=== PATIENT | female | born 1960 | race Caucasian/White ===

== ENCOUNTER 2017-04-26 16:20 | Inpatient (IN) | payer MEDICAID ==
[2017-04-26] VITALS (9 sets, daily range): BP systolic 95–131; BP diastolic 57–91; PULSE 70–168; RESP 16–18; TEMP 94–98.6; O2SAT 94–97
[~2017-04-26] VITALS: Ht 154.9 cm; Wt 56.5 kg
[~2017-04-26 16:20] MED LIST: CYCL10TA PO; IBUP1TAB7 PO; METO10TA PO; PROM25SU8 PO; SULF1TAB47 PO; Z.0.NO CURRENT MEDS
[2017-04-26] MEDS ORDERED: IOHEXOL 350 MG/ML 10 ML VIAL (for RAD DIAG) IVCONTRAST ONE (16:21)
[2017-04-26] MEDS ORDERED: SODIUM CHLORIDE 0.9% FLUSH 10 ML FLUSH IV FLUSH PRN ×2 (18:45→23:15)
--- NOTE | 2017-04-26 18:46 | PD ---
HPI Chief Complaint: Cold / Flu Symptoms Time Seen by Provider: 18:24 Travel History International Travel<30 days: No Contact w/Intl Traveler<30days: No Traveled to known affect area: No History of Present Illness HPI Patient 56-year-old female presents emergency department with multiple complaints. She states that her chief complaint is that her left foot has been aching her somewhat. She states that approximately a year ago she stepped on something and she had something inside of her foot. Approximate 8 months ago she noticed it started swelling up and she cut herself open to try and get whatever it was out was unsuccessful but did relieve some pus. Very recently the patient came back home from [place] where her son is very ill in the hospital. She states she has a history of blood clots in her left lower extremity and is supposed to be on blood thinners but has no insurance so has not been on them for years. She denies any shortness of breath, denies any abdominal pain chest pain. She states that she had noticed some swelling of her left lower extremity which is chronic for her but it has gone down since she got back from out of town. States the aching is really only been going on for 2 or 3 days, she has been taking Tylenol ibuprofen at home for no significant relief, context and associated signs symptoms as above. Patient is a secondary complaint of upper respiratory symptoms including stuffy nose, bilateral ear fullness, dry cough. She denies any fevers. Denies any shortness of breath these symptoms been going on for the past few days PFSH Past Medical History Hx Anticoagulant Therapy: No Autoimmune Disease: Yes (RA) Cardiac Catheterization: Yes Cardiovascular Problems: Yes (HI, STENT) Coronary Artery Disease: Yes Diabetes: No Diminished Hearing: No Deep Vein Thrombosis: Yes Kidney Stones: Yes Immunizations Current: No Myocardial Infarction: Yes ?: Not Menopausal: Yes Tubal Ligation: Yes Past Surgical History Coronary Stent: Yes (x1) Ear Surgery: Yes Tonsillectomy: Yes Other Surgery: Yes (R ARM AND R 2ND DIGIT) Social History Alcohol Use: No Tobacco Use: Yes (1/2 PPD) Substance Use: No Allergies-Medications (Allergen,Severity, Reaction): Coded Allergies: No Known Allergies (Verified Allergy, Unknown, 04/26/17) Reported Meds & Prescriptions Reported Meds & Active Scripts Active No Active Prescriptions or Reported Medications Review of Systems Except as stated in HPI: all other systems reviewed are Neg Physical Exam Narrative GENERAL: Well-developed well-nourished, no obvious distress peer SKIN: Focused skin assessment warm/dry. Several calcified nodules particularly on the extensor surfaces of her upper extremities. She also has calcifications over multiple joints in bilateral hands peer HEAD: Atraumatic. Normocephalic. EYES: Pupils equal and round. No scleral icterus. No injection or drainage. ENT: No nasal bleeding or discharge. Mucous membranes pink and moist. NECK: Trachea midline. No JVD. CARDIOVASCULAR: Regular rate and rhythm. No murmur appreciated. RESPIRATORY: No accessory muscle use. Clear to auscultation. Breath sounds equal bilaterally. GASTROINTESTINAL: Abdomen soft, non-tender, nondistended. Hepatic and splenic margins not palpable. MUSCULOSKELETAL: There is ulnar deviation of the majority of the digits in her bilateral upper extremities at the MCP joints consistent with rheumatoid arthritis.. No clubbing. No cyanosis. There is some mild edema of the left foot, no edema of the left calf, extremity is not warm, not erythematous, nontender to palpation, I do not see any wounds. NEUROLOGICAL: Awake and alert. No obvious cranial nerve deficits. Motor grossly within normal limits. Normal speech. PSYCHIATRIC: Appropriate mood and affect; insight and judgment normal. Data Data Last Documented VS Vital Signs Date Time Temp Pulse Resp B/P (MAP) Pulse Ox O2 Delivery O2 Flow Rate FiO2 04/26/17 21:50 70 16 108/57 (74) 96 Room Air 04/26/17 19:09 94.0 Orders Orders Basic Metabolic Panel (Bmp) (04/26/17 18:35) Complete Blood Count With Diff (04/26/17 18:35) Prothrombin Time / Inr (Pt) (04/26/17 18:35) Act Partial Throm Time (Ptt) (04/26/17 18:35) Iv Access Insert/Monitor (04/26/17 18:35) Ecg Monitoring (04/26/17 18:35) Oximetry (04/26/17 18:35) Sodium Chloride 0.9% Flush (Ns Flush) (04/26/17 18:45) Us Leg Venous Doppler (04/26/17 18:35) Chest, Pa & Lat (04/26/17 ) Sodium Chlor 0.9% 1000 Ml Inj (Ns 1000 M (04/26/17 19:15) Electrocardiogram (04/26/17 ) Ct Pulmonary Angiogram (04/26/17 ) Troponin I (04/26/17 18:35) Thyroid Stimulating Hormone (04/26/17 18:35) Electrocardiogram (04/26/17 19:16) Troponin I (04/26/17 21:02) Electrocardiogram (04/26/17 ) Adenosine Inj (Adenocard Inj) (04/26/17 21:45) Iohexol 350 Inj (Omnipaque 350 Inj) (04/26/17 16:21) Blood Culture (04/26/17 23:08) Vancomycin Inj (Vancomycin Inj) (04/26/17 23:15) Piperacil-Tazo 4.5 Gm Premix (Zosyn 4.5 (04/26/17 23:15) Admit Order (Ed Use Only) (04/26/17 ) Admit To Inpatient (04/26/17 ) Vital Signs (Adult) Q4H (04/26/17 23:11) Activity Oob With Assistance (04/26/17 23:11) Dependency Program Director / Telemetry .CONTINUOUS (04/26/17 23:11) Diet Heart Healthy (04/27/17 Breakfast) Sodium Chloride 0.9% Flush (Ns Flush) (04/26/17 23:15) Sodium Chloride 0.9% Flush (Ns Flush) (04/27/17 09:00) Basic Metabolic Panel (Bmp) (04/27/17 06:00) Complete Blood Count With Diff (04/27/17 06:00) Creatine Kinase (Cpk) (04/27/17 01:00) Creatine Kinase (Cpk) (04/27/17 07:00) Troponin I (04/27/17 01:00) Troponin I (04/27/17 07:00) Electrocardiogram (04/27/17 01:00) Electrocardiogram (04/27/17 07:00) Case Management Consult (04/26/17 23:11) Naloxone Inj (Narcan Inj) (04/26/17 23:15) Inpatient Certification (04/26/17 ) Echo 2d Comp With Doppler (04/26/17 ) Labs Laboratory Tests Test 04/26/17 19:10 04/26/17 21:20 White Blood Count 10.5 TH/MM3 Red Blood Count 4.95 MIL/MM3 Hemoglobin 12.5 GM/DL Hematocrit 38.4 % Mean Corpuscular Volume 77.7 FL Mean Corpuscular Hemoglobin 25.3 PG Mean Corpuscular Hemoglobin Concent 32.5 % Red Cell Distribution Width 15.4 % Platelet Count 242 TH/MM3 Mean Platelet Volume 8.9 FL Neutrophils (%) (Auto) 70.5 % Lymphocytes (%) (Auto) 22.7 % Monocytes (%) (Auto) 3.1 % Eosinophils (%) (Auto) 2.4 % Basophils (%) (Auto) 1.3 % Neutrophils # (Auto) 7.4 TH/MM3 Lymphocytes # (Auto) 2.4 TH/MM3 Monocytes # (Auto) 0.3 TH/MM3 Eosinophils # (Auto) 0.3 TH/MM3 Basophils # (Auto) 0.1 TH/MM3 CBC Comment DIFF FINAL Differential Comment Prothrombin Time 11.0 SEC Prothromb Time International Ratio 1.1 RATIO Activated Partial Thromboplast Time 22.7 SEC Blood Urea Nitrogen 17 MG/DL Creatinine 0.52 MG/DL Random Glucose 84 MG/DL Calcium Level 8.8 MG/DL Sodium Level 140 MEQ/L Potassium Level 4.5 MEQ/L Chloride Level 109 MEQ/L Carbon Dioxide Level 22.2 MEQ/L Anion Gap 9 MEQ/L Estimat Glomerular Filtration Rate 122 ML/MIN Troponin I LESS THAN 0.02 NG/ML 0.02 NG/ML Thyroid Stimulating Hormone 3rd Gen 2.390 uIU/ML MDM Medical Decision Making Medical Screen Exam Complete: Yes Emergency Medical Condition: Yes Differential Diagnosis SVT,, Pneumonia, PE, DVT, osteomyelitis seems unlikely per Narrative Course Patient was roomed in the emergency department, initial vital signs on triage are reassuring, initial vital signs when I saw the patient were within normal limits as well. Shortly after I stepped out of the room with the patient's complaints my initial concerns were for DVT and possibly pneumonia. She had been having some upper respiratory symptoms and this swelling in her foot. Certainly do not see any wounds on her foot the foot is not hot it is not tender and I highly doubt an infectious process in her foot. I left the room with these 2 diagnoses chiefly in mind and was informed by nursing that on repeat assessment the patient now is in SVT at a rate of 170. The patient had IV started with me at the bedside and I called for 6 mg of adenosine to be given, the patient had EKG prior to and following conversion. Initial EKG did show SVT, fairly regular, 6 mg was effective to control her rate and she did not require repeat dosing while in the emergency department. Her underlying rhythm was normal sinus rhythm at about 55-65 bpm. Having this run of SVT brought in by differential diagnosis to include ACS and PE. On further review of systems the patient states that this is been happening to her on and off for some time, she states that she has a history of DVT in the left lower extremity but has not taken her Coumadin in some time because she does not have insurance. She states she has had a heart attack approximately 8 years ago but is unable to provide any history about what interventions happened to her including if a catheterization had happened or not. The patient states that when the symptoms happen she feels a tight sensation in her right arm feels very dizzy like she is going to pass out. Repeat EKG showed no signs of acute HI, initial troponin was negative. Both EKG and troponin were repeated in the emergency department and remained negative. The CT PE protocol shows the following results: Last 24 hours Impressions Lower Extremity Ultrasound 04/26/17 1835 Signed Impressions: Service Date/Time: Wednesday, April 26, 2017 19:21 - CONCLUSION: Negative study. No venous thrombosis of the left lower extremity. Derick Gomez MD Chest X-Ray 04/26/17 0000 Signed Impressions: Service Date/Time: Wednesday, April 26, 2017 20:05 - CONCLUSION: No definite acute cardiopulmonary disease. Mild, chronic appearing interstitial opacities. Derick Gomez MD CT Angiography 04/26/17 0000 Signed Impressions: Service Date/Time: Wednesday, April 26, 2017 22:10 - CONCLUSION: 1. No pulmonary embolus. 2. Patchy parenchymal consolidation of both lungs and with a nodular appearance in the mid and upper lungs. These findings are most likely infectious or inflammatory. The differential would include septic emboli. Followup noncontrast chest CT is recommended in approximately 3 months. 3. Apparent hepatosplenomegaly, only partly included on the study. 4. Coronary artery calcification. Derick Gomez MD The patient was inquired again about the possibility of IV drug abuse and she adamantly declines. Given her chronic inflammatory disease the patient certainly could be having rheumatologic nodules in her lungs. She has no heart murmur has not been febrile in the emergency department, though she has had upper respiratory symptoms including cough congestion. Given all the findings I think at this time of my differential diagnoses the only things that have been excluded are DVT and PE. Septic pulmonary emboli is still a possibility, endocarditis is now become a possibility, pneumonia remains a possibility, and coronary artery disease still remains a possibility. The patient appears well, hemodynamically stable and comfortable. I discussed differential diagnosis with her and recommended admission to the hospital and she ultimately is agreeable. The patient and arranging differential diagnoses were discussed with Dr. [place]. Diagnosis Primary Impression: Left foot pain Additional Impressions: SVT (supraventricular tachycardia) Pneumonia Pulmonary nodules Admitting Information Admitting Physician Requests: Admit Scripts No Active Prescriptions or Reported Meds Condition: Stable Saurav Atkinson MD Apr 26, 2017 18:46
[2017-04-26] MEDS ORDERED: SODIUM CHLOR 0.9% 1000 ML INJ 1,000 ML IV ONE (19:15)
--- NOTE | 2017-04-26 19:47 | RADRPT ---
EXAM DATE/TIME: 04/26/2017 19:21 [facility] COMPARISON: No previous studies available for comparison. INDICATIONS : Left leg pain and swelling. Shortness of breath. MEDICAL HISTORY : Myocardial infarction. CAD. Kindey stones. DVT. SURGICAL HISTORY : Tonsillectomy. Tubal ligation. Cardiac stent. Cardiac catheterization. ENCOUNTER: Initial ACUITY: 1 week PAIN SCORE: 8/10 LOCATION: Left leg. TECHNIQUE: Venous ultrasound of the leg was performed from the inguinal ligament to the proximal calf. Real-meaghan e, color Doppler and spectral tracing, compression and augmentation techniques were used. FINDINGS: There is normal compressibility of the deep venous system from the inguinal region to the proximal ca lf. No echogenic clot is seen in the lumen of the common femoral, femoral, popliteal, and posterior tibial veins. There is a normal response of the venous system to proximal and distal augmentation an d respiration. CONCLUSION: Negative study. No venous thrombosis of the left lower extremity. Derick Gomez MD on April 26, 2017 at 19:44 Board Certified Radiologist. This report was verified electronically.
[2017-04-26 19:53] LABS: CHLORIDE 109 MEQ/L (98-107); SODIUM (NA) 140 MEQ/L (136-145)
[2017-04-26 19:55] LABS: CALCIUM 8.8 MG/DL (8.5-10.1)
[2017-04-26 19:56] LABS: BICARBONATE 22.2 MEQ/L (21.0-32.0); BLOOD UREA NITROGEN 17 MG/DL (7-18); GLUCOSE,RANDOM 84 MG/DL (74-106)
[2017-04-26 19:59] LABS: CREATININE 0.52 MG/DL (0.50-1.00); GLOMERULAR FILTRATION RATE 122 ML/MIN (>89)
[2017-04-26 20:04] LABS: TROPONIN I LESS THAN 0.02 NG/ML (0.02-0.05)
[2017-04-26 20:06] LABS: AUTOMATED NEUTROPHIL # 7.4 TH/MM3 (1.8-7.7); BASOPHIL # 0.1 TH/MM3 (0-0.2); BASOPHIL % 1.3 % (0.0-2.0); EOSINOPHIL # 0.3 TH/MM3 (0-0.4); EOSINOPHIL % 2.4 % (0.0-4.0); HEMATOCRIT 38.4 % (35.0-46.0); HEMOGLOBIN 12.5 GM/DL (11.6-15.3); LYMPH % 22.7 % (9.0-44.0); LYMPHOCYTE # 2.4 TH/MM3 (1.0-4.8); MEAN CELL VOLUME 77.7 FL (80.0-100.0); MEAN CORPUSCULAR HEMOGLOBIN 25.3 PG (27.0-34.0); MEAN CORPUSCULAR HGB CONC 32.5 % (32.0-36.0); MEAN PLATELET VOLUME 8.9 FL (7.0-11.0); MONO % 3.1 % (0.0-8.0); MONOCYTE # 0.3 TH/MM3 (0-0.9); NEUT % 70.5 % (16.0-70.0); PLATELET COUNT 242 TH/MM3 (150-450); RED BLOOD COUNT 4.95 MIL/MM3 (4.00-5.30); RED CELL DISTRIBUTION WIDTH 15.4 % (11.6-17.2); WHITE BLOOD COUNT 10.5 TH/MM3 (4.0-11.0)
--- NOTE | 2017-04-26 20:44 | RADRPT ---
EXAM DATE/TIME: 04/26/2017 20:05 [facility] COMPARISON: No previous studies available for comparison. INDICATIONS : Productive cough. Short of breath. MEDICAL HISTORY : Myocardial infarction. CAD. Kindey stones. DVT. SURGICAL HISTORY : Umbilical hernia repair. Tonsillectomy. Tubal ligation. Cardiac stent. Cardiac catheterization. ENCOUNTER: Initial ACUITY: 1 week PAIN SCORE: 0/10 LOCATION: Bilateral chest FINDINGS: Mild diffuse interstitial opacity seen of both lungs, most likely chronic. No definite acute infiltra te. No pleural effusion or pneumothorax seen. Heart size stable, within normal limits. CONCLUSION: No definite acute cardiopulmonary disease. Mild, chronic appearing interstitial opacities. Derick Gomez MD on April 26, 2017 at 20:41 Board Certified Radiologist. This report was verified electronically.
[2017-04-26 21:19] LABS: INTERNATIONAL NORMALIZED RATIO 1.1 RATIO
[2017-04-26] MEDS ORDERED: ADENOSINE IV SOLN 3 MG/ML 2 ML VIAL IV PUSH ONE (21:45)
--- NOTE | 2017-04-26 22:39 | RADRPT ---
EXAM DATE/TIME: 04/26/2017 22:10 [facility] COMPARISON: No previous studies available for comparison. INDICATIONS : Cold Symptoms with back aches. Left leg swelling IV CONTRAST: 70 cc Omnipaque 350 (iohexol) IV RADIATION DOSE: 8.19 CTDIvol (mGy) MEDICAL HISTORY : Cardiovascular disease. Deep venous thrombosis. Renal calculi. SURGICAL HISTORY : Coronary artery stent. Tubal ligation. ENCOUNTER: Initial ACUITY: 1 day PAIN SCALE: 7/10 LOCATION: chest TECHNIQUE: Volumetric scanning of the chest was performed using a pulmonary embolism protocol MIP images were re constructed. Using automated exposure control and adjustment of the mA and/or kV according to patien t size, radiation dose was kept as low as reasonably achievable to obtain optimal diagnostic quality images. DICOM format image data is available electronically for review and comparison. Follow-up recommendations for detected pulmonary nodules are based at a minimum on nodule size and pa tient risk factors according to Fleischner Society Guidelines. FINDINGS: No pulmonary embolus. Patchy parenchymal opacities of both lungs and with a vague nodular appearance in an upper lobe predo minant distribution. More focal and slightly masslike consolidation measuring approximately 2 cm in s ize seen of the right lung base. There is moderate emphysema present. Coronary artery calcification noted. Upper abdomen only partly included on the study. Hepatosplenomegaly is suspected. CONCLUSION: 1. No pulmonary embolus. 2. Patchy parenchymal consolidation of both lungs and with a nodular appearance in the mid and upper lungs. These findings are most likely infectious or inflammatory. The differential would include sept ic emboli. Followup noncontrast chest CT is recommended in approximately 3 months. 3. Apparent hepatosplenomegaly, only partly included on the study. 4. Coronary artery calcification. Derick Gomez MD on April 26, 2017 at 22:33 Board Certified Radiologist. This report was verified electronically.
[2017-04-26] MEDS ORDERED: Vancomycin Consult Pharmacy 1 EA OTHER SCH (23:15)
[2017-04-26] MEDS ORDERED: VANCOMYCIN INJ 1,000 MG in SODIUM CHLOR 0.9% 250 ML INJ 250 ML IV ONE (23:15)
[2017-04-26] MEDS ORDERED: NALOXONE HCL 0.4 MG/ML AMP IV PUSH PRN (23:15)
[2017-04-26] MEDS ORDERED: PIPERACIL-TAZO 4.5 GM PREMIX 100 ML IV ONE (23:15)
[2017-04-27] VITALS (10 sets, daily range): BP systolic 105–143; BP diastolic 60–95; PULSE 58–81; RESP 16–20; TEMP 96.6–98.8; O2SAT 95–97
[2017-04-27 01:56] LABS: TROPONIN I 0.02 NG/ML (0.02-0.05)
[2017-04-27] MEDS ORDERED: PIPERACIL-TAZO 4.5 GM PREMIX 100 ML IV SCH (06:00)
[2017-04-27 08:18] LABS: AUTOMATED NEUTROPHIL # 3.2 TH/MM3 (1.8-7.7); BASOPHIL % 0.4 % (0.0-2.0); EOSINOPHIL # 0.1 TH/MM3 (0-0.4); EOSINOPHIL % 3.1 % (0.0-4.0); HEMATOCRIT 33.6 % (35.0-46.0); HEMOGLOBIN 10.6 GM/DL (11.6-15.3); LYMPH % 26.2 % (9.0-44.0); LYMPHOCYTE # 1.2 TH/MM3 (1.0-4.8); MEAN CELL VOLUME 78.2 FL (80.0-100.0); MEAN CORPUSCULAR HEMOGLOBIN 24.7 PG (27.0-34.0); MEAN CORPUSCULAR HGB CONC 31.6 % (32.0-36.0); MEAN PLATELET VOLUME 8.5 FL (7.0-11.0); MONO % 3.2 % (0.0-8.0); MONOCYTE # 0.1 TH/MM3 (0-0.9); NEUT % 67.1 % (16.0-70.0); PLATELET COUNT 207 TH/MM3 (150-450); RED CELL DISTRIBUTION WIDTH 15.5 % (11.6-17.2); WHITE BLOOD COUNT 4.6 TH/MM3 (4.0-11.0)
[2017-04-27 08:29] LABS: CALCIUM 8.3 MG/DL (8.5-10.1)
[2017-04-27 08:30] LABS: BICARBONATE 23.1 MEQ/L (21.0-32.0)
[2017-04-27 08:33] LABS: CREATININE 0.45 MG/DL (0.50-1.00)
[2017-04-27 08:36] LABS: TROPONIN I 0.02 NG/ML (0.02-0.05)
[2017-04-27] MEDS ORDERED: TEMAZEPAM 15 MG CAP PO PRN (10:30)
[2017-04-27] MEDS ORDERED: NICOTINE 21 MG/24 HR PATCH T-DERMAL SCH (10:30)
[2017-04-27] MEDS ORDERED: RESP: ALBUTEROL 2.5 MG/IPRATROPIUM 0.5 MG NEB (PRN) NEB (10:30)
[2017-04-27] MEDS ORDERED: ACETAMINOPHEN 325 MG TAB PO PRN (10:30)
[2017-04-27] MEDS ORDERED: ONDANSETRON HCL 4 MG/2 ML VIAL IV PUSH PRN (10:30)
--- NOTE | 2017-04-27 10:32 | HHI.HP ---
[facility] No Primary Care Physician Admission Diagnosis Pneumonia, SVT, Possible ACS, Possible Septic Pulmonary Emboli Diagnoses: (1) SVT (supraventricular tachycardia) (2) Hypochromic microcytic anemia (3) Bronchitis (4) Bronchitis due to tobacco use (5) Left foot pain Chief Complaint: Shortness of breath, left foot pain Travel History International Travel<30 Days: No Contact w/Intl Traveler <30 Da: No Traveled to Known Affected Are: No History of Present Illness 56 year-old female with a history of rheumatoid arthritis presented to the ED yesterday for evaluation of multiple constellation of problems including several weeks to months duration of left foot pain secondary to what patient described as retained foreign object. She also complained of significant shortness of breath and left lower extremity swelling. Secondary to prior history of DVT, a CTA was ordered in the ED which was negative for PE as well as Doppler which did not reveal any DVT. While in emergency department patient was found to be in SVT for which she responded well to Adenosine 6 mg IV 1. She also complained of upper respiratory symptoms including stuffy nose and dry cough along with shortness of breath however denies any fever. Patient has a known history of tobacco abuse. Since admission, patient stated her symptoms have improved and denies any significant shortness of breath at a time. Review of Systems Except as stated in HPI: all other systems reviewed are Neg Past Family Social History Past Medical History Autoimmune Disease: Yes (RA) Cardiac Catheterization: Yes Cardiovascular Problems: Yes (NV, STENT) Coronary Artery Disease: Yes Deep Vein Thrombosis: Yes Kidney Stones: Yes Myocardial Infarction: Yes Tubal Ligation: Yes Past Surgical History Coronary Stent: Yes (x1) Ear Surgery: Yes Tonsillectomy: Yes Other Surgery: Yes (R ARM AND R 2ND DIGIT) Reported Medications Not Currently on any medication Allergies: Coded Allergies: No Known Allergies (Verified Allergy, Unknown, 04/26/17) Family History Positive for heart disease Social History Alcohol Use: No Tobacco Use: Yes (/2 PPD) Substance Use: No Physical Exam Vital Signs Vital Signs Date Time Temp Pulse Resp B/P (MAP) Pulse Ox O2 Delivery O2 Flow Rate FiO2 04/27/17 08:16 98.5 67 16 130/76 (94) 96 04/27/17 02:28 98.1 62 20 119/73 (88) 97 04/27/17 02:23 64 04/27/17 02:00 04/27/17 01:50 70 16 141/69 (93) 95 Room Air 04/27/17 01:20 73 16 105/66 (79) 95 Room Air 04/27/17 00:40 64 16 111/60 (77) 96 Room Air 04/27/17 00:00 64 16 04/26/17 23:40 98.6 70 16 116/74 (88) 95 Room Air 04/26/17 21:50 70 16 108/57 (74) 96 Room Air 04/26/17 21:10 82 16 95/77 (83) 97 Room Air 04/26/17 20:10 86 16 131/79 (96) 96 Room Air 04/26/17 19:42 86 18 04/26/17 19:37 86 16 114/69 (84) 96 Room Air 04/26/17 19:18 88 18 125/74 (91) 95 Room Air 04/26/17 19:15 168 18 110/76 (87) 94 Room Air 04/26/17 19:09 94.0 18 Room Air 04/26/17 16:35 98.4 88 16 122/91 (101) 97 Physical Exam GENERAL: This is a well-nourished, well-developed patient, in no apparent distress. SKIN: No rashes, ecchymoses or lesions. Cool and dry. HEAD: Atraumatic. Normocephalic. No temporal or scalp tenderness. EYES: Pupils equal round and reactive. Extraocular motions intact. No scleral icterus. No injection or drainage. ENT: Nose without bleeding, purulent drainage or septal hematoma. Throat without erythema, tonsillar hypertrophy or exudate. Uvula midline. Airway patent. NECK: Trachea midline. No JVD or lymphadenopathy. Supple, nontender, no meningeal signs. CARDIOVASCULAR: Regular rate and rhythm without murmurs, gallops, or rubs. RESPIRATORY: Clear to auscultation. Breath sounds equal bilaterally. No rales, or rhonchi. + Mild expiratory wheezes GASTROINTESTINAL: Abdomen soft, non-tender, nondistended. No hepato-splenomegaly , or palpable masses. No guarding. MUSCULOSKELETAL: Extremities without clubbing, cyanosis, or edema. No joint tenderness, effusion, or edema noted. No calf tenderness. Negative Homans sign bilaterally. NEUROLOGICAL: Awake and alert. Cranial nerves II through XII intact. Motor and sensory grossly within normal limits. Five out of 5 muscle strength in all muscle groups. Normal speech. Laboratory Laboratory Tests Test 04/26/17 19:10 04/26/17 21:20 04/27/17 01:30 04/27/17 07:50 White Blood Count 10.5 4.6 Red Blood Count 4.95 4.30 Hemoglobin 12.5 10.6 Hematocrit 38.4 33.6 Mean Corpuscular Volume 77.7 78.2 Mean Corpuscular Hemoglobin 25.3 24.7 Mean Corpuscular Hemoglobin Concent 32.5 31.6 Red Cell Distribution Width 15.4 15.5 Platelet Count 242 207 Mean Platelet Volume 8.9 8.5 Neutrophils (%) (Auto) 70.5 67.1 Lymphocytes (%) (Auto) 22.7 26.2 Monocytes (%) (Auto) 3.1 3.2 Eosinophils (%) (Auto) 2.4 3.1 Basophils (%) (Auto) 1.3 0.4 Neutrophils # (Auto) 7.4 3.2 Lymphocytes # (Auto) 2.4 1.2 Monocytes # (Auto) 0.3 0.1 Eosinophils # (Auto) 0.3 0.1 Basophils # (Auto) 0.1 0.0 CBC Comment DIFF FINAL AUTO DIFF Differential Comment AUTO DIFF CONFIRMED Prothrombin Time 11.0 Prothromb Time International Ratio 1.1 Activated Partial Thromboplast Time 22.7 Blood Urea Nitrogen 17 12 Creatinine 0.52 0.45 Random Glucose 84 80 Calcium Level 8.8 8.3 Sodium Level 140 143 Potassium Level 4.5 3.8 Chloride Level 109 111 Carbon Dioxide Level 22.2 23.1 Anion Gap 9 9 Estimat Glomerular Filtration Rate 122 144 Troponin I LESS THAN 0.02 0.02 0.02 0.02 Thyroid Stimulating Hormone 3rd Gen 2.390 Total Creatine Kinase 11 14 Date/Time Source Procedure Growth Status 04/26/17 23:40 Blood Peripheral Aerobic Blood Culture Pending Received 04/26/17 23:40 Blood Peripheral Anaerobic Blood Culture Pending Received Result Diagram: 04/27/17 0750 04/27/17 0750 Imaging Last Impressions Lower Extremity Ultrasound 04/26/17 1835 Signed Impressions: Service Date/Time: Wednesday, April 26, 2017 19:21 - CONCLUSION: Negative study. No venous thrombosis of the left lower extremity. Derick Gomez MD Chest X-Ray 04/26/17 0000 Signed Impressions: Service Date/Time: Wednesday, April 26, 2017 20:05 - CONCLUSION: No definite acute cardiopulmonary disease. Mild, chronic appearing interstitial opacities. Derick Gomez MD CT Angiography 04/26/17 0000 Signed Impressions: Service Date/Time: Wednesday, April 26, 2017 22:10 - CONCLUSION: 1. No pulmonary embolus. 2. Patchy parenchymal consolidation of both lungs and with a nodular appearance in the mid and upper lungs. These findings are most likely infectious or inflammatory. The differential would include septic emboli. Followup noncontrast chest CT is recommended in approximately 3 months. 3. Apparent hepatosplenomegaly, only partly included on the study. 4. Coronary artery calcification. Derick Gomez MD Caprini VTE Risk Assessment Caprini VTE Risk Assessment: No/Low Risk (score <= 1) Caprini Risk Assessment Model Point Value = 1 Point Value = 2 Point Value = 3 Point Value = 5 Age 41-60 Minor surgery BMI > 25 kg/m2 Swollen legs Varicose veins or History of unexplained or recurrent spontaneous Oral contraceptives or hormone replacement Sepsis (< 1 month) Serious lung disease, including pneumonia (< 1 month) Abnormal pulmonary function Acute myocardial infarction Congestive heart failure (< 1 month) History of inflammatory bowel disease Medical patient at bed rest Age 61-74 Arthroscopic surgery Major open surgery (> 45 min) Laparoscopic surgery (> 45 min) Malignancy Confined to bed (> 72 hours) Immobilizing plaster cast Central venous access Age >= 75 History of VTE Family history of VTE Factor V Leiden Prothrombin [id number] Lupus anticoagulant Anticardiolipin antibodies Elevated serum homocysteine Heparin-induced thrombocytopenia Other congenital or acquired thrombophilia Stroke (< 1 month) Elective arthroplasty Hip, pelvis, or leg fracture Acute spinal cord injury (< 1 month) Prophylaxis Regimen Total Risk Factor Score Risk Level Prophylaxis Regimen 0-1 Low Early ambulation 2 Moderate Order ONE of the following: *Sequential Compression Device (SCD) *Heparin 5000 units SQ BID 3-4 Higher Order ONE of the following medications: *Heparin 5000 units SQ TID *Enoxaparin/Lovenox 40 mg SQ daily (WT < 150 kg, CrCl > 30 mL/min) *Enoxaparin/Lovenox 30 mg SQ daily (WT < 150 kg, CrCl > 10-29 mL/min) *Enoxaparin/Lovenox 30 mg SQ BID (WT < 150 kg, CrCl > 30 mL/min) AND/OR *Sequential Compression Device (SCD) 5 or more Highest Order ONE of the following medications: *Heparin 5000 units SQ TID (Preferred with Epidurals) *Enoxaparin/Lovenox 40 mg SQ daily (WT < 150 kg, CrCl > 30 mL/min) *Enoxaparin/Lovenox 30 mg SQ daily (WT < 150 kg, CrCl > 10-29 mL/min) *Enoxaparin/Lovenox 30 mg SQ BID (WT < 150 kg, CrCl > 30 mL/min) AND *Sequential Compression Device (SCD) Assessment and Plan Problem List: (1) SVT (supraventricular tachycardia) ICD Code: I47.1 - Supraventricular tachycardia Status: Acute (2) Hypochromic microcytic anemia ICD Code: D50.9 - Iron deficiency anemia, unspecified (3) Bronchitis ICD Code: J40 - Bronchitis, not specified as acute or chronic (4) Bronchitis due to tobacco use ICD Code: J41.0 - Simple chronic bronchitis; Z72.0 - Tobacco use Assessment and Plan 56-year-old female with Supraventricular tachycardia Patient with known history of NV ACS ruled out per protocol with serial cardiac enzyme and EKGs CTA noted and reviewed by me and negative for PE, Doppler noted and reviewed by me and negative for DVT Responded well to Adenosine 6 mg IV 1 in ED TSH within normal limit, check free T4 Check electrolytes including magnesium and phosphorus and treat accordingly 2-D echo pending as well as cardiology consultation Will investigate current anemia Hypochromic microcytic anemia Check Hemoccult as well as iron study and treat accordingly Monitor H&H Bronchitis Chest x-ray noted and review by me with no definite acute cardiopulmonary disease Start Levaquin 500 mg by mouth in a.m. as well as taper prednisone 20 mg daily Discontinue vancomycin and Zosyn Tobacco cessation counseling provided DuoNeb when necessary Tobacco abuse Tobacco counseling cessation provided Start nicotine patch Claim of retained foreign object in the left foot Outpatient follow-up with podiatry and recommend outpatient imaging study History of rheumatoid arthritis Need outpatient follow-up with rheumatology Left lower extremity swelling Doppler negative for DVT Check BNP and 2-D echo pending DVT prophylaxis: Bilateral SCDs Code Status Full code Discussed Condition With Patient Denton العلي MD Apr 27, 2017 10:32
[2017-04-27 11:01] LABS: MAGNESIUM 1.9 MG/DL (1.5-2.5)
[2017-04-27 11:04] LABS: PHOSPHORUS 3.5 MG/DL (2.5-4.9)
[2017-04-27] MEDS: predniSONE 20 MG TAB PO SCH (12:14)
[2017-04-27] MEDS: SODIUM CHLORIDE 0.9% FLUSH 10 ML FLUSH IV FLUSH SCH ×2 (12:14→21:00)
[2017-04-27] MEDS ORDERED: VANCOMYCIN INJ 650 MG in SODIUM CHLOR 0.9% 250 ML INJ 250 ML IV SCH (14:00)
[2017-04-27 14:27] LABS: IRON (FE) 60 MCG/DL (50-170); TOTAL IRON BINDING CAPACITY 273 MCG/DL (250-450)
[2017-04-27 14:30] LABS: FREE T4 1.01 NG/DL (0.76-1.46)
[2017-04-27] MEDS: NICOTINE 14 MG/24 HR PATCH T-DERMAL SCH (17:58)
--- NOTE | 2017-04-27 18:47 | ECHRPT ---
Indication: EVALUATE FOR VEGETATIONS CONCLUSIONS Mildly dilated left ventricle. Wall thickness is normal. The left ventricular systolic function is moderately reduced with an estimated ejection fraction in the range of 40-45%. The left atrial size is xizgudnw-wc-ddtbjsme dilated. The right atrial size is ranz-un-viyxwxfctu dilated. Mild thickening of the mitral valve leaflets. Mild mitral valve regurgitation. There is trace tricuspid valve regurgitation. BP: 119 / 73 HR: 62 Rhythm: Sinus MEASUREMENTS (Male / Female) Normal Values Technical Quality:Fair 2D ECHO LV Diastolic Diameter PLAX 6.3 cm 4.2 - 5.9 / 3.9 - 5.3 cm LV Systolic Diameter PLAX 5.3 cm IVS Diastolic Thickness 0.8 cm 0.6 - 1.0 / 0.6 - 0.9 cm LVPW Diastolic Thickness 0.8 cm 0.6 - 1.0 / 0.6 - 0.9 cm LV Relative Wall Thickness 0.3 RV Internal Dim ED PLAX 1.5 cm LVOT Diameter 1.7 cm Aortic Root Diameter 2.8 cm LA Systolic Diameter LX 3.7 cm 3.0 - 4.0 / 2.7 - 3.8 cm M-MODE AV Cusp Separation MM 1.6 cm DOPPLER AV Peak Velocity 135.0 cm/s AV Peak Gradient 7.3 mmHg AV Mean Gradient 3.0 mmHg AV Velocity Time Integral 27.8 cm LVOT Peak Velocity 94.7 cm/s LVOT Peak Gradient 3.6 mmHg LVOT Velocity Time Integral 19.8 cm AV Area Cont Eq vti 1.6 cm AV Area Cont Eq pk 1.6 cm Mitral E Point Velocity 83.9 cm/s Mitral A Point Velocity 57.3 cm/s Mitral E to A Ratio 1.5 LV E' Lateral Velocity 6.6 cm/s Mitral E to LV E' Lateral Ratio 12.7 LV E' Septal Velocity 6.5 cm/s Mitral E to LV E' Septal Ratio 12.8 PV Peak Velocity 68.4 cm/s PV Peak Gradient 1.9 mmHg FINDINGS LEFT VENTRICLE Mildly dilated left ventricle. Wall thickness is normal. The left ventricular systolic function is moderately reduced with an estimated ejection fraction in the range of 40-45%. RIGHT VENTRICLE Normal right ventricular size and systolic function. LEFT ATRIUM The left atrial size is lrnjoduf-dt-gqdrmihs dilated. RIGHT ATRIUM The right atrial size is epww-db-jqxicykyyk dilated. ATRIAL SEPTUM No atrial level shunt is demonstrated by color flow Doppler interrogation. AORTA The aortic root and proximal ascending aorta are not well visualized. MITRAL VALVE Mild thickening of the mitral valve leaflets. Mild mitral valve regurgitation. AORTIC VALVE Trileaflet aortic valve. No aortic valve stenosis or regurgitation. TRICUSPID VALVE There is trace tricuspid valve regurgitation. PULMONARY VALVE The pulmonary valve is not well visualized. VESSELS The inferior vena cava is normal in size. PERICARDIUM No pericardial effusion. Susie Flores MD, FACC (Electronically Signed) Final Date:27 April 2017 18:46
[2017-04-27] MEDS: METOPROLOL TARTRATE 25 MG TAB PO SCH (21:00)
--- NOTE | 2017-04-27 23:01 | EKG ---
Date Performed: 04/27/2017 Time Performed: 07:50:04 PTAGE: 56 years EKG: SINUS BRADYCARDIA MINIMAL ST DEPRESSION PROLONGED QT INTERVAL ABNORMAL ECG PREVIOUS TRACING : 04/27/2017 01.08 Since the previous tracing, no significant change noted DOCTOR: Jose Tuttle Interpretating Date/Time 04/27/2017 23:00:22
--- NOTE | 2017-04-27 23:28 | EKG ---
Date Performed: 04/27/2017 Time Performed: 01:08:37 PTAGE: 56 years EKG: Sinus rhythm PROLONGED QT INTERVAL ABNORMAL ECG PREVIOUS TRACING : 04/26/2017 21.25 Since the previous tracing, no significant change noted DOCTOR: Jose Tuttle Interpretating Date/Time 04/27/2017 23:25:53
--- NOTE | 2017-04-27 23:32 | EKG ---
Date Performed: 04/26/2017 Time Performed: 21:25:51 PTAGE: 56 years EKG: ECTOPIC ATRIAL RHYTHM LEFT ATRIAL ENLARGEMENT POSSIBLE RIGHT VENTRICULAR HYPERTROPHY PROBAB LE INFERIOR MYOCARDIAL INFARCTION ABNORMAL ECG PREVIOUS TRACING : 04/26/2017 19.16 Since the previous tracing, no significant change noted DOCTOR: Jose Tuttle Interpretating Date/Time 04/27/2017 23:31:17
--- NOTE | 2017-04-27 23:36 | EKG ---
Date Performed: 04/26/2017 Time Performed: 19:16:39 PTAGE: 56 years EKG: Sinus rhythm POSSIBLE LEFT ATRIAL ENLARGEMENT BORDERLINE ECG NO PREVIOUS TRACING DOCTOR: Jose Tuttle Interpretating Date/Time 04/27/2017 23:33:49
--- NOTE | 2017-04-27 23:37 | EKG ---
Date Performed: 04/26/2017 Time Performed: 19:14:22 PTAGE: 56 years EKG: SUPRAVENTRICULAR TACHYCARDIA MODERATE ST DEPRESSION ABNORMAL QRS-T ANGLE ABNORMAL ECG NO PREVIOUS TRACING DOCTOR: Jose Tuttle Interpretating Date/Time 04/27/2017 23:34:06
[2017-04-28] VITALS: BP 120/72; PULSE 53; RESP 20; TEMP 97.1; O2SAT 95
[2017-04-28 04:00] VITALS: BP 136/76; PULSE 52; RESP 20; TEMP 96; O2SAT 97
[2017-04-28 07:27] LABS: AUTOMATED NEUTROPHIL # 3.2 TH/MM3 (1.8-7.7); BASOPHIL % 0.4 % (0.0-2.0); EOSINOPHIL # 0.1 TH/MM3 (0-0.4); EOSINOPHIL % 2.1 % (0.0-4.0); HEMATOCRIT 35.5 % (35.0-46.0); HEMOGLOBIN 11.7 GM/DL (11.6-15.3); LYMPH % 36.2 % (9.0-44.0); MEAN CELL VOLUME 77.4 FL (80.0-100.0); MEAN CORPUSCULAR HEMOGLOBIN 25.5 PG (27.0-34.0); MEAN CORPUSCULAR HGB CONC 32.9 % (32.0-36.0); MEAN PLATELET VOLUME 8.3 FL (7.0-11.0); MONO % 5.7 % (0.0-8.0); MONOCYTE # 0.3 TH/MM3 (0-0.9); NEUT % 55.6 % (16.0-70.0); PLATELET COUNT 212 TH/MM3 (150-450); RED BLOOD COUNT 4.59 MIL/MM3 (4.00-5.30); RED CELL DISTRIBUTION WIDTH 15.3 % (11.6-17.2); WHITE BLOOD COUNT 5.6 TH/MM3 (4.0-11.0)
[2017-04-28 07:37] LABS: CALCIUM 8.7 MG/DL (8.5-10.1)
[2017-04-28 07:38] LABS: BICARBONATE 25.6 MEQ/L (21.0-32.0)
[2017-04-28 07:41] LABS: CREATININE 0.55 MG/DL (0.50-1.00)
[2017-04-28 08:00] VITALS: BP 138/85; PULSE 58; RESP 18; TEMP 97.8; O2SAT 98
[2017-04-28 08:01] VITALS: PULSE 51
[2017-04-28] MEDS: METOPROLOL TARTRATE 25 MG TAB PO SCH (08:15)
[2017-04-28] MEDS: NICOTINE 14 MG/24 HR PATCH T-DERMAL SCH (08:24)
[2017-04-28] MEDS: SODIUM CHLORIDE 0.9% FLUSH 10 ML FLUSH IV FLUSH SCH (08:25)
[2017-04-28] MEDS: predniSONE 20 MG TAB PO SCH (08:25)
[2017-04-28] MEDS ORDERED: PRAVASTATIN SOD 20 MG TAB PO SCH (09:00)
[2017-04-28] MEDS ORDERED: REMOVE OLD PATCH T-DERMAL SCH ×2 (09:00→21:00)
[2017-04-28] MEDS ORDERED: LISINOPRIL 10 MG TAB PO SCH (09:00)
[2017-04-28] MEDS ORDERED: ASPIRIN EC 81 MG TABEC PO SCH (09:00)
--- NOTE | 2017-04-28 09:23 | HHI.PR ---
Subjective Remarks Follow-up SVT 04/28/17-patient seen and examined, denies any chest pain or shortness of breath , heart rate in the low 50s however patient is asymptomatic. Objective Vitals Vital Signs Date Time Temp Pulse Resp B/P (MAP) Pulse Ox O2 Delivery O2 Flow Rate FiO2 04/28/17 08:01 51 04/28/17 04:00 96.0 52 20 136/76 (96) 97 04/28/17 00:00 97.1 53 20 120/72 (88) 95 04/27/17 21:00 97.9 72 20 143/80 (101) 97 04/27/17 17:01 98.8 72 16 129/81 (97) 96 04/27/17 13:06 58 04/27/17 11:58 96.6 81 16 138/95 (109) 97 I/O 04/27/17 04/27/17 04/27/17 04/28/17 04/28/17 04/28/17 07:00 15:00 23:00 07:00 15:00 23:00 Intake Total 450 ml 1000 ml 240 ml Output Total 0 ml Balance 450 ml 1000 ml 240 ml Intake Oral 0 ml 1000 ml 240 ml IV Total 450 ml Output Urine Total 0 ml # Voids 3 1 # Bowel Movements 0 Result Diagram: 04/28/17 0700 04/28/17 0700 Imaging Last Impressions Lower Extremity Ultrasound 04/26/17 1835 Signed Impressions: Service Date/Time: Wednesday, April 26, 2017 19:21 - CONCLUSION: Negative study. No venous thrombosis of the left lower extremity. Derick Gomez MD Chest X-Ray 04/26/17 0000 Signed Impressions: Service Date/Time: Wednesday, April 26, 2017 20:05 - CONCLUSION: No definite acute cardiopulmonary disease. Mild, chronic appearing interstitial opacities. Derick Gomez MD CT Angiography 04/26/17 0000 Signed Impressions: Service Date/Time: Wednesday, April 26, 2017 22:10 - CONCLUSION: 1. No pulmonary embolus. 2. Patchy parenchymal consolidation of both lungs and with a nodular appearance in the mid and upper lungs. These findings are most likely infectious or inflammatory. The differential would include septic emboli. Followup noncontrast chest CT is recommended in approximately 3 months. 3. Apparent hepatosplenomegaly, only partly included on the study. 4. Coronary artery calcification. Derick Gomez MD Objective Remarks GENERAL: NAD SKIN: Warm and dry. HEAD: Normocephalic. EYES: No scleral icterus. No injection or drainage. NECK: Supple, trachea midline. No JVD or lymphadenopathy. CARDIOVASCULAR: Regular rate and rhythm without murmurs, gallops, or rubs. RESPIRATORY: Breath sounds equal bilaterally. No accessory muscle use. GASTROINTESTINAL: Abdomen soft, non-tender, nondistended. MUSCULOSKELETAL: No cyanosis, or edema. BACK: Nontender without obvious deformity. No CVA tenderness. A/P Problem List: (1) SVT (supraventricular tachycardia) ICD Code: I47.1 - Supraventricular tachycardia Status: Acute (2) Hypochromic microcytic anemia ICD Code: D50.9 - Iron deficiency anemia, unspecified (3) Bronchitis ICD Code: J40 - Bronchitis, not specified as acute or chronic (4) Bronchitis due to tobacco use ICD Code: J41.0 - Simple chronic bronchitis; Z72.0 - Tobacco use (5) Left foot pain ICD Code: M79.672 - Pain in left foot Status: Acute Assessment and Plan 56-year-old female with Supraventricular tachycardia Patient with known history of [place] ACS ruled out per protocol with serial cardiac enzyme and EKGs CTA noted and reviewed by me and negative for PE, Doppler noted and reviewed by me and negative for DVT Responded well to Adenosine 6 mg IV 1 in ED TSH within normal limit, free T4 wnl Magnesium and phosphorus WNL 2-D echo with EF 40-45% and cardiology consultation pending Hypochromic microcytic anemia iron study wnl Monitor H&H Bronchitis Chest x-ray noted and review by me with no definite acute cardiopulmonary disease Continue Levaquin 500 mg by mouth in a.m. as well as taper prednisone 20 mg daily s/p vancomycin and Zosyn Tobacco cessation counseling provided DuoNeb when necessary Tobacco abuse Tobacco counseling cessation provided On nicotine patch Claim of retained foreign object in the left foot Outpatient follow-up with podiatry and recommend outpatient imaging study History of rheumatoid arthritis Need outpatient follow-up with rheumatology Left lower extremity swelling Doppler negative for DVT BNP 205 and 2-D echo with EF 40-45% DVT prophylaxis: Bilateral SCDs Denton العلي MD Apr 28, 2017 09:23
[2017-04-28] MEDS ORDERED: LEVOFLOXACIN 500 MG TAB PO SCH (11:00)
[2017-04-28 12:00] VITALS: BP 158/81; PULSE 65; RESP 18; TEMP 98.6; O2SAT 96
--- NOTE | 2017-04-28 12:22 | MB ---
cc: Susie Flores MD DATE OF CONSULT: 04/27/2017 HISTORY OF PRESENT ILLNESS: Ms. Jose is a 56-year-old white female with history of arthritis since she presented with recent shortness of breath, left lower extremity edema, left foot pain. She has history of myocardial infarction and cardiac stenting, but does not exactly remember the circumstances or symptoms. She thinks it might have been done in [place], [place]. She was recently returned back from [place]. In the emergency room, she was found to be in supraventricular tachycardia, which was terminated with intravenous adenosine. The patient has had also nasal congestion, dry cough. She does not have angina. PAST MEDICAL HISTORY: Positive for rheumatoid arthritis, myocardial infarction, coronary stenting, deep vein thrombosis, nephrolithiasis, tubal ligation, ear surgery, right arm and right digit surgery, tonsillectomy. MEDICATIONS: The patient does not take medications, except occasional aspirin or ibuprofen. ALLERGIES: NONE. SOCIAL HISTORY: The patient does not drink alcohol. She smoke 1/2 pack a day and does not think she can quit. FAMILY HISTORY: Negative for heart disease and arthralgias. REVIEW OF SYSTEMS: Otherwise negative. PHYSICAL EXAMINATION: VITAL SIGNS: Blood pressure 129/81, pulse 72 and regular. HEENT: Negative. NECK: 2+ carotid upstrokes, no bruits. LUNGS: Clear. CARDIOVASCULAR: Heart regular, with no murmur, gallop or rub. ABDOMEN: Soft, no bruits. EXTREMITIES: With mild left lower edema, 2+ distal pulses. NEUROLOGIC: Exam is grossly nonfocal. STUDY: EKG was reviewed and showed normal sinus rhythm, with no intervals. Small inferior Q waves. showed supraventricular tachycardia at a rate of 150 beats per minute, with heart rate of 145 beats per minute. LABORATORY DATA: Hemoglobin 10.6, potassium 3.8, creatinine 0.45. Troponin negative. CK normal. BNP 205. DIAGNOSIS: 1. Paroxysmal supraventricular tachycardia. 2. Anemia. 3. Bronchitis. 4. Smoking. 5. Coronary artery disease, history of myocardial infarction. 6. Rheumatoid arthritis. DISPOSITION AND RECOMMENDATIONS: Ms. Jose will be monitored on telemetry. Will increase her activities. She will be rule out for myocardial infarction by enzymes. At this time, she does not have angina. She does not take any kind of medication, but recently got insurance and is willing to start taking medicines. I recommend to start therapy with metoprolol, pravastatin and baby aspirin. Also recommend to start lisinopril since her echocardiogram showed function with an ejection fraction of 40-45%. She should followup with primary physician after discharge. MD WHITNEY Tapia/GERI , 08:25 PM , 08:54 PM
[2017-04-28] MEDS ORDERED: ECASA81 PO (13:41)
[2017-04-28] MEDS ORDERED: METO25TA3 PO (13:41)
[2017-04-28] MEDS ORDERED: PRAV20TA PO (13:41)
[2017-04-28] MEDS ORDERED: LISI10TA3 PO (13:41)
[2017-04-28] MEDS ORDERED: LEVA500T33 PO (13:41)
[2017-04-28] MEDS ORDERED: MEDR4PAK PO (13:41)
--- NOTE | 2017-04-28 13:41 | HHI.DCPOC ---
Discharge Care Plan Diagnosis: (1) Bronchitis (2) SVT (supraventricular tachycardia) Goals to Promote Your Health * To prevent worsening of your condition and complications * To maintain your health at the optimal level Directions to Meet Your Goals Take your medications as prescribed Follow your dietary instruction Follow activity as directed Keep your appointments as scheduled Take your immunizations and boosters as scheduled If your symptoms worsen call your PCP, if no PCP go to Urgent Care Center or Emergency Room Smoking is Dangerous to Your Health. Avoid second hand smoke Call the 24-hour hour crisis hotline for domestic abuse at [facility] Apr 28, 2017 13:41
[2017-04-28] MEDS ORDERED: PHARMACY ORDERED LAB ONE (13:45)
--- NOTE | 2017-04-28 14:58 | HHI.PR ---
Addendum to Inpatient Note Addendum Reason: Additional Documentation Additional Information Discharge patient to home Condition on discharge: Improved Regular Diet as tolerated Ad Eufemia activity Rx written:see EMR Follow-up with primary care physician in 1 week cardiology per protocol Denton العلي MD Apr 28, 2017 14:58
== END 2017-04-28 15:00 | disposition home or self-care (01) | DRG 310 ==
LOC: PHED 16:20 → PHEDA 23:13 → PH3A 04-27 02:04
PROVIDERS: ADMIT Hospitalist; ATTEND Hospitalist
DX: I47.1 Supraventricular tachycardia (principal); D50.9 Iron deficiency anemia, unspecified; I25.2 Old myocardial infarction; I25.10 Atherosclerotic heart disease of native coronary artery without angina pectoris; M06.9 Rheumatoid arthritis, unspecified; J41.0 Simple chronic bronchitis; M79.672 Pain in left foot; F17.210 Nicotine dependence, cigarettes, uncomplicated; Z86.718 Personal history of other venous thrombosis and embolism; Z95.5 Presence of coronary angioplasty implant and graft
CPT/HCPCS: 71046; 71275; 80048; 82550; 83540; 83550; 83735; 83880; 84100; 84439; 84443; 84484; 85025; 85610; 85730; 87040; 93005; 93306; 93971; 96361; 96374; J0153; J2543; J3370; J7030; J7050; J7512; Q9967